=== PATIENT | female | born 1960 | race Caucasian/White ===

== ENCOUNTER 2020-03-08 17:48 | Emergency (ER) | payer MEDICAID, OTHER ==
[~2020-03-08] VITALS: Ht 160 cm; Wt 50.5 kg
--- NOTE | 2020-03-08 19:23 | NUR ---
PONDMAN: PT. TO ROOM FROM LOBBY AT THIS TIME.
[2020-03-08] MEDS ORDERED: IBUPROFEN 600 MG TABLET ONE (21:10)
[2020-03-08 21:13] VITALS: BP 126/80
[2020-03-08] MEDS ORDERED: IBUPROFEN 600 MG TABLET PO ONE (21:30)
== END 2020-03-08 21:15 | disposition home or self-care (01) ==
LOC: ED 19:57
DX: R20.2 Paresthesia of skin (principal); Z59.0 Homelessness
CPT/HCPCS: 82962; 99282